=== PATIENT | male | born 1975 | race Caucasian/White ===

== ENCOUNTER 2019-08-11 14:22 | Emergency (ER) | payer SELFPAY ==
--- NOTE | 2019-08-11 14:34 | ED Physician Documentation ---
Chest Pain - HISTORIAN Historian: patient - HPI Stated Complaint: chest pain started last night on and off Chief Complaint: Chest Pain Onset: days ago (2) Timing: better, gone now Duration: none Last known Well Date: 08/08/19 Last Known Well Time: 09:00 Context: other (he has had recent emotional upset and increased use of his bow for hunting ) Severity: mild Quality: sharp, other (no radiation no nausea no sweating) Chest Pain Radiation: no radiation Chest Pain Signs/Symptoms: denies: nausea, vomiting, diaphoresis, cool extremities, dizziness, dyspnea, tachypnea, tachycardia, hypotension, palpitati ons, weakness Worsened By: nothing Relieved By: nothing Further Comments: yes (He states he had a URI for the entire month of Jun and he had several antibitoics to resolve this issue. He is recently . Changing jobs and he has started to smoke again. He states he was sitting there last night and he noted sharp mid sternal chest pain that lasted about 30 seconds or less. DId not radiate or cause any SOA. He has recently started to use his bow for hunting more although no recent injury. No pain with inspiration. No other complaints. No OTC meds) - ROS CONST: none MS/LYMPH: none GI/: none EYES/ENT: none SKIN/ENDO: none NEURO/PSYCH: none - PAST HX AK risk factors: no pertinent history DVT/PE Risk Factors: none TAD/AAA risk factors: none Neuro deficit: none GI disease: none Lung disease: none Surgeries/Procedures: none Allergies/Adverse Reactions: Allergies Allergy/AdvReac Type Severity Reaction Status Date / Time No Known Allergies Allergy Verified 08/11/19 14:48 Home Medications: Ambulatory Orders Medication Instructions Recorded NK 08/11/19 - SOCIAL HX Smoking History: cigarettes Alcohol Use: occasionally Drug Use: none - FAMILY HX Family HX: none - REVIEWED ASSESSMENTS Nursing Assessment Reviewed: Yes Vitals Reviewed: Yes Progress - Progress Progress: Discussed findings and how this is a small work up and he should follow up with PCP for further work up DG Chest Pain Physical Exam - EXAM General Appearance: no acute distress, alert EENT: eye inspection normal, no signs of dehydration Neck: nml inspection Respiratory: no resp. distress, chest non-tender, nml breath sounds CVS: reg. rate & rhythm, no murmur Abdomen: soft, normal bowel sounds, no distension, non-tender Skin: warm/dry, normal color Extremities: non-tender, normal range of motion, no evidence of injury, no edema Neuro: oriented X3 Discharge Clincal Impression: Chest pain Qualifiers: Chest pain type: other chest pain Qualified Code(s): R07.89 - Other chest pain Referrals: Primary Doctor,No [Primary Care Provider] - 2 Days Comments: 1. Follow up with PCP for further cardiac work up 2. STOP SMOKING 3. Return to ER for any increased concerns Condition: Stable Disposition: 01 HOME, SELF-CARE Decision to Admit: NO Date of Decison to Admit: 08/11/19 Decision Time: 15:26
[2019-08-11] MEDS: ASPIRIN 81 MG CHEW TAB ONE (14:37)
[2019-08-11 14:56] LABS: BASOPHILS % 0.4 % (0.0-1.5)
[2019-08-11 14:57] LABS: NEUTROPHILS # 3.6 # k/uL (1.4-7.7)
--- NOTE | 2019-08-11 15:00 | Diagnostic Imaging Report ---
PATIENT MR#: [id number] PATIENT PATIENT NAME: LIZBETH VARELA DATE OF : 1975 REFERRING PHYSICIAN: Radha Sebastian EXAM DATE: 08/11/2019 ACCESSION NUMBER: [id number] EXAM DESCRIPTION: CHEST 1VIEW Exam: AP chest. History: Chest pain. No previous studies are available for comparison. Lung cano are well aerated without bobby consolidation or effusion. Heart and mediastinal contour are normal. No bony abnormalities are seen. Impression: No bobby consolidation or effusion. Read by: Dr. Yo Peralta Transcribed by: Transcribed Date: Electronically signed by: Dr. Yo Peralta Date signed: 08/11/2019 2:59:53 PM
[2019-08-11 15:13] LABS: eGFR (Non-African) > 60
[2019-08-11 16:11] VITALS: BP 123/82
== END 2019-08-11 15:37 | disposition home or self-care (01) ==
LOC: ED 14:22
DX: R07.89 Other chest pain (principal)
CPT/HCPCS: 71045; 80053; 83880; 84484; 85025; 85379; 93005; 99282; S1016